=== PATIENT | male | born 1965 | race Caucasian/White ===

== ENCOUNTER → 2023-04-06 | Day surgery (SDC) | payer OTHER ==
[~2023-04-06] VITALS: Ht 175.3 cm; Wt 77.1 kg
[~2023-04-06] MED LIST: ACETAMINOPHEN 325MG TABLET PO PRN; ASPI-1497 PO; FENTANYL CITRATE/PF 50MCG/ML 2ML VIAL ONE; FURO-152 PO; GLIP10TA10 PO; HEPARIN 1000 UNITS/ML 10ML ONE; INSU100V43 SQ; IODIXANOL 320MG/ML 100 ML BOTTLE IV ONE; LIDOCAINE HCL 1% 20ML VIAL (Pyxis) INJ ONE; LIP40 PO; METF-416 PO; MIDAZOLAM HCL 2 MG/2 ML VIAL ONE; ONDANSETRON HCL 4MG/2ML INJ IV PRN; PANT40TA51 PO; SITA100T11 PO
== END | disposition home or self-care (01) ==
LOC: CCL 06:26
PROVIDERS: ATTEND Specialist
DX: I35.0 Nonrheumatic aortic (valve) stenosis (principal); E11.9 Type 2 diabetes mellitus without complications; I27.20 Pulmonary hypertension, unspecified; E78.5 Hyperlipidemia, unspecified; Z87.891 Personal history of nicotine dependence; Z79.84 Long term (current) use of oral hypoglycemic drugs; Z79.82 Long term (current) use of aspirin; Z79.899 Other long term (current) drug therapy; Z98.890 Other specified postprocedural states
CPT/HCPCS: 93460; 82962; C1893; C1760; C1769 ×2; J3010; Q9967; J1644 ×2; J3490; J2250; C1887 ×2